=== PATIENT | female | born 1975 | race Caucasian/White ===

== ENCOUNTER 2024-03-06 10:03 | Outpatient (CLI) | payer OTHER, SELFPAY ==
[2024-03-07 20:28] LABS: Lupus dRVVT Screen 43 sec (< OR = 45); PTT-LA Screen 28 sec (< OR = 40)
[2024-03-08 13:32] LABS: Homocysteine 12.2 umol/L (<10.4)
[2024-03-09 05:13] LABS: Antithrombin III Activity 134 % normal (80-135)
== END 2024-03-06 10:04 | disposition home or self-care (01) ==
LOC: ANHLAB 10:11
PROVIDERS: PCP Family Medicine; Visit Provider Internal Medicine Hematology & Oncology
DX: D68.69 Other thrombophilia (principal)
CPT/HCPCS: 36415; 81240; 81241; 83090; 85300; 85303; 85306; 85613; 85730; 86146

== ENCOUNTER 2024-04-17 19:35 | Emergency (ER) | payer OTHER, SELFPAY ==
[2024-04-17 19:47] VITALS: BP 113/78; PULSE 78; RESP 19; TEMP 36.9; O2SAT 100
[2024-04-17 19:59] VITALS: RESP 18; O2SAT 100
--- NOTE | 2024-04-17 20:15 | PC.NURSE ---
Pinhole at end of G tube, Dr Mercedes at bedside to assess the tubing. g tube leak fixed. g tube has no hole or leaking and has been flushed with water multiple times to assess.
--- NOTE | 2024-04-17 20:47 | ED_ITS ---
HPI - General Adult General Chief complaint: Unspecified Stated complaint: GTube problem Time Seen by Provider: 04/17/24 20:03 History of Present Illness HPI narrative: patient 38-year-old female presents emergency department with chief complaint of pinhole in the G-tube. The patient reports that she has had a G-tube that was placed in another facility reports that it has a bolster has not a balloon based 2 the patient states there is a pinhole at the very distal portion of tube that when attached to her feedings sprays material out. Review of Systems Review of Systems: A 10 system review of systems was completed on the patient and is negative except for what is stated in the HPI. Nursing and ancillary documentation was reviewed. Exam Narrative: GENERAL: Well-appearing, well-nourished, and in no acute distress. HEAD: Normocephalic, atraumatic. EYES: PERRLA and EOMI. ENT: Nares clear, no rhinorrhea or epistaxis. Mucous membranes moist. NECK: Supple. CHEST: Clear to auscultation. No respiratory distress. HEART: Regular rate and rhythm. No murmur heard. Normal peripheral pulses. ABDOMEN: Soft, nontender, nondistended, normal active bowel sounds. G-tube in place of the abdominal wall there is a small pinhole present in the distal portion of the tube EXTREMITIES: Normal range of motion. No edema. SKIN: Warm, dry, no rash. NEURO: No focal deficits. Alert and oriented x3. PSYCH: Normal mood and affect. Course Vital Signs Vital signs: Vital Signs Temperature 36.9 C 04/17/24 19:47 Pulse Rate 78 04/17/24 19:47 Respiratory Rate 19 04/17/24 19:47 Blood Pressure 113/78 04/17/24 19:47 Pulse Oximetry 100 04/17/24 19:47 Oxygen Delivery Room Air 04/17/24 19:47 Temperature 36.9 C 04/17/24 19:47 Pulse Rate 78 04/17/24 19:47 Respiratory Rate 18 04/17/24 19:59 Blood Pressure 113/78 04/17/24 19:47 Pulse Oximetry 100 04/17/24 19:59 Oxygen Delivery Room Air 04/17/24 19:47 Medical Decision Making [facility] Narrative Medical decision making narrative: the feeding tube was trimmed and the attachment was replaced. There is currently no leaking present Vital Signs Vital Signs: Vital Signs Temperature 36.9 C 04/17/24 19:47 Pulse Rate 78 04/17/24 19:47 Respiratory Rate 19 04/17/24 19:47 Blood Pressure 113/78 04/17/24 19:47 Pulse Oximetry 100 04/17/24 19:47 Oxygen Delivery Room Air 04/17/24 19:47 Temperature 36.9 C 04/17/24 19:47 Pulse Rate 78 04/17/24 19:47 Respiratory Rate 18 04/17/24 19:59 Blood Pressure 113/78 04/17/24 19:47 Pulse Oximetry 100 04/17/24 19:59 Oxygen Delivery Room Air 04/17/24 19:47 Discharge Plan Discharge Clinical Impression: Malfunction of gastrostomy tube Patient Disposition: NH Senior Care/Asst Living Condition: Stable Instructions: Antibiotic Form, How to Use and Care for Your PEG Tube (DC) Additional Instructions: the leaking portion of the tube was trimmed and is no longer leaking. Please follow-up with your surgeon/GI doctor for routine follow-up and scheduled changes Follow-up/Referrals: Kadeem Wolfe MD [Primary Care Provider] - Time of Disposition: 20:56
--- NOTE | 2024-04-17 22:59 | PC.NURSE ---
Assumed care of pt from JUDITH Henry at this time.
[2024-04-18 06:58] VITALS: BP 110/70; PULSE 72; RESP 16; O2SAT 98
== END 2024-04-18 12:33 ==
PROVIDERS: Emergency Provider Emergency Medicine; PCP Family Medicine
DX: K94.23 Gastrostomy malfunction (principal); Y83.3 Surgical operation with formation of external stoma as the cause of abnormal reaction of the patient, or of later complication, without mention of misadventure at the time of the procedure
CPT/HCPCS: 99282

== ENCOUNTER 2024-07-07 12:18 | Outpatient (CLI) | payer OTHER, SELFPAY ==
--- OUTSIDE RECORDS SUMMARY | 2024-07-07 12:20 | XMS_ITS | Encounter Summary ---
Author Organization [facility] Address [address] [place] [address] Care Team Providers Care Equipment Hire Manager Name Role Phone Kadeem Wolfe MD Primary Care Provider [phone] Encounter Details Date Type Department Care Team (Late st Contact Info) Description 07/05/2024 External Device Data [facility] ABSTRACTION Provider, Abstract NO ADDRESS ON FILE Social History Tobacco Use Types Packs/Day Years Used Date Smoking Tobacco: Former Cigarettes 0.8 25 Q uit: 02/16/2023 Alcohol Use Standard Drinks/Week Comments Not Currently 0 (1 standard drink = 0.6 oz pur e alcohol) Comments Unknown Sex and Gender Information Value Date Recorded Sex Assigned at Not on file Legal Sex Female 8:46 AM CDT Gender Identity Not on file Sexual Orientation Not on file documented as of this encounter Plan of Treatment Upcoming Encounters Date Type Department Care Team (Late st Contact Info) Description 07/10/2024 4:30 PM SUPERVISOR FUSING ROOM Telephone Check Up [facility] Oncology and Hematology - [place] [address] [facility] [address] [place] [address] Monty Han MD [address] [facility] [address] [place] [address] documented as of this encounter Visit Diagnoses Not on filedocumented in this encounter Care Teams Equipment Hire Manager Relationship Specialty Start Date End Date Kadeem Wolfe MD [address] [place] [address] PCP - General Family Practice 02/17/24 documented as of this encounter
--- OUTSIDE RECORDS SUMMARY | 2024-07-07 12:20 | XMS_ITS | Clinical Summary ---
Author Organization [facility] Address [address] [place] [address] Care Team Providers Care Turner Machine Name Role Phone Kadeem Wolfe MD Primary Care Provider [phone] Allergies No known active allergies Medications acetaminophen (TYLENOL ARTHRITIS) 650 mg Extended Release tablet Take 650 mg by mouth every 6 hours as needed for Pain. Active ascorbic acid, vitamin C, (VITAMIN C) 500 mg tablet Take 500 mg by mouth daily. Active aspirin (ECOTRIN EC) 81 mg Tablet, Delayed Release (E.C.) Take 81 mg by mouth daily. Active bisacodyL (DULCOLAX) 5 mg Delayed Release tablet Take 5 mg by mouth 1 time daily as needed for Constipation . Active BISACODYL RECTAL Insert 10 mg by rectum. Active magnesium citrate (CITROMA ORAL) Take 296 mg by mouth. Active escitalopram oxalate (LEXAPRO) 5 mg tablet Take 5 mg by mouth daily. Active ferrous sulfate 325 mg (65 mg iron) tablet Take 325 mg by mouth daily. Active sodium phosphates (FLEET ADULT) 19-7 gram/118 mL Enema Insert 133 mL by rectum one time only. Active gabapentin (NEURONTIN) 600 mg tablet Take 600 mg by mouth 3 times daily. Active magnesium hydroxide (MILK OF MAGNESIA) 400 mg/5 mL suspension Take 30 mL by mouth 1 time daily as needed for Constipation . Active pramipexole (MIRAPEX) 0.125 mg Tablet Take 0.125 mg by mouth. Active silver sulfADIAZINE (SILVADENE) 1 % Cream Apply to affected area daily. Active thiamine (VITAMIN B-1) 100 mg tablet Take 1 Tablet by mouth daily. Active traMADoL (ULTRAM) 50 mg tablet Take 50 mg by mouth every 6 hours as needed for Pain. Active folic acid (FOLVITE) 1 mg tabletIndications:S econdary hypercoagulable state Take 1 Tablet (1 mg) by mouth daily. 30 Tablet 3 4 Active cyanocobalamin 1,000 mcg TabletIndications:S econdary hypercoagulable state Take 1 Tablet (1,000 mcg) by mouth daily. 30 Tablet 3 4 Active Active Problems No known active problems Encounters Date Type Department Care Team Description 07/06/2024 Telephone [facility] Oncology and Hematology - [place] [address] [place] [address] Monty Han MD Labs for appointment 07/05/2024 External Device Data [facility] ABSTRACTION Provider, Abstract 06/27/2024 External Device Data [facility] ABSTRACTION Provider, Abstract 06/07/2024 External Device Data [facility] ABSTRACTION Provider, Abstract 06/07/2024 External Device Data [facility] ABSTRACTION Provider, Abstract from Last 3 Months Family History Medical History Relation Name Comments No Known Problems Brother Heart Disease Father Pancreatic Cancer Mother Relation Name Status Comments Brother Alive Father Mother Social History Tobacco Use Types Packs/Day Years Used Date Smoking Tobacco: Former Cigarettes 0.8 25 Q uit: 02/16/2023 Tobacco Cessation:Counseling Given: Not Answered Alcohol Use Standard Drinks/Week Comments Not Currently 0 (1 standard drink = 0.6 oz pur e alcohol) Comments Unknown Sex and Gender Information Value Date Recorded Sex Assigned at Not on file Legal Sex Female 8:46 AM CDT Gender Identity Not on file Sexual Orientation Not on file Last Filed Vital Signs Vital Sign Reading Time Taken Comments Blood Pressure 108/77 02/17/2024 10:43 AM CDT Pulse 81 02/17/2024 10:43 AM CDT Temperature 36.8 C (98.2 F) 02/17/2024 10:43 AM CDT Respiratory Rate 16 02/17/2024 10:43 AM CDT Oxygen Saturation 95% 02/17/2024 10:43 AM CDT Inhaled Oxygen Concentration - - Weight 52.2 kg (115 lb) 02/17/2024 10:43 AM CDT Height 160 cm (5' 3 ) 02/17/2024 10:43 AM CDT Body Mass Index 20.37 02/17/2024 10:43 AM CDT Plan of Treatment Upcoming Encounters Date Type Department Care Team (Late st Contact Info) Description 07/10/2024 4:30 PM INDUSTRIAL PHOTOGRAPHER Telephone Check Up [facility] Oncology and Hematology - [place] [address] [facility] [address] [place] [address] Monty Han MD [address] [facility] [address] [place] [address] Health Maintenance Due Date Last Done Comments DTAP/TDAP/TD VACCINES (5 - Tdap) 1988 04/04/1979, 03/29/1978, 03/04/1978, Additional history exists HEPATITIS B VACCINES (1 of 3 - 19+ 3-dose series) 1996 05/29/2002, 12/14/2001, 11/11/2001 COLORECTAL SCREENING 2022 Colorectal Cancer Screening 2022 FIT-DNA Q 3 years 2022 FIT/FOBT Q 1 year 2022 Flex Sig/CT Colonography Q 5 years 2022 INFLUENZA VACCINE (#1) 2023 BREAST CANCER SCREENING 03/22/2024 03/22/2023 Preventative Visit-Managed Medicaid 03/23/2024 03/22/2023, 12/15/2021, 03/29/2018 CERVICAL CANCER SCREENING 12/15/2024 12/15/2021 HPV VACCINES Aged Out No longer eligi ble based on patient's age to complete this topic Insurance [employer] [place] Care Teams Turner Machine Relationship Specialty Start Date End Date Kadeem Wolfe MD [address] [place] [address] PCP - General Family Practice 02/17/24
--- OUTSIDE RECORDS SUMMARY | 2024-07-07 12:20 | XMS_ITS | Encounter Summary ---
Author Organization [facility] [employer] Address [address] [place] [address] Care Team Providers Care Director Of Government Sales Name Role Phone Kadeem Wolfe MD Primary Care Provider [phone] Reason for Visit * Reason Onset Date Comments Labs for appointment 07/06/2024 Encounter Details Date Type Department Care Team (Late st Contact Info) Description 07/06/2024 Telephone [facility] Oncology and Hematology - [place] [address] [facility] [address] [place] [address] Monty Han MD [address] [facility] [address] [place] [address] Labs for appointment Social History Tobacco Use Types Packs/Day Years [...] on file documented as of this encounter Miscellaneous Notes * Telephone Encounter - Davy Manzanares Cyndee, CECY - 07/06/2024 10:17 AM COMMUNITY SPORTS COORDINATOR Called patients brother to see if patient has gotten her labs done. Patients brother does not know and told me to call the group home that the patient is staying in to see if they did them or not. I called the group home and got transferred to the nurses station to see about patients labs but got no answer. The front tender said that they would get our number along with my personal extension togive to the nurses station and to give us a call back to let us know. UNITY SPORTS COORDINATOR documented in this encounter Plan of Treatment Upcoming Encounters Date Type Department Care Team (Late st Contact Info) Description 07/10/2024 4:30 PM COMMUNITY SPORTS COORDINATOR Telephone Check Up [facility] Oncology and Hematology - [place] [address] [facility] [address] [place] [address] Monty Han MD [address] [facility] [address] [place] [address] documented as of this encounter Visit Diagnoses Not on filedocumented in this encounter Care Teams Director Of Government Sales Relationship Specialty Start Date End Date Kadeem Wolfe MD [address] [place] [address] PCP - General Family Practice 02/17/24 documented as of this encounter
[2024-07-07 12:33] LABS: Basophils Percent Auto 0.5 % (0.2-1.2); Eosinophils Absolute Auto 0.4 K/mm3 (0-0.3); Eosinophils Percent Auto 4.9 % (0-4.4); Hematocrit 41.2 % (37.0-47.0); Hemoglobin 13.6 g/dL (12.0-15.0); Immature Granulocyte Absolute 0.01 K/mm3 (0.00-0.031); Immature Granulocyte Percent A 0.1 % (0-0.5); Lymphocytes Percent Auto 28.5 % (18.3-44.2); Mean Corpuscular Hemoglobin 31.3 pg (26-34); Mean Corpuscular Volume 94.7 fl (80-100); Mean Platelet Volume 10.2 fl (7.4-10.4); Monocytes Absolute Auto 0.4 K/mm3 (0.1-0.6); Monocytes Percent Auto 5.4 % (2.6-8.5); Neutrophils Absolute Auto 4.5 K/mm3 (1.3-6.7); Neutrophils Percent Auto 60.6 % (45.5-73.1); Platelet Count Result 384 k/mm3 (150-375); Red Blood Count 4.35 M/mm3 (4.2-5.4); Red Cell Distribution Width 12.1 % (11.5-14.5); White Blood Count 7.4 K/mm3 (4.5-10.0)
[2024-07-07 16:36] LABS: Anion Gap 9 mmol/L (4-12); Blood Urea Nitrogen 15 mg/dL (7-17); Calcium 9.8 mg/dL (8.4-10.2); Carbon Dioxide 29 mmol/L (22-30); Chloride 103 mmol/L (98-107); Estimated Glomerular Filt Rate > 60; Glucose 78 mg/dL (65-110); Potassium 4.1 mmol/L (3.4-5.0); Sodium 141 mmol/L (137-145)
[2024-07-07 17:39] LABS: Folic Acid > 20.0 ng/mL (2.76->20)
[2024-07-10 14:38] LABS: Homocysteine 9.5 umol/L (<10.4)
== END 2024-07-07 12:19 | disposition home or self-care (01) ==
LOC: ANHLAB 12:19
PROVIDERS: PCP Family Medicine; Visit Provider Internal Medicine Hematology & Oncology
DX: D68.69 Other thrombophilia (principal)
CPT/HCPCS: 36415; 80048; 82607; 82746; 83090; 85025

== ENCOUNTER 2025-03-05 12:51 | Emergency (ER) | payer OTHER, SELFPAY ==
[2025-03-05 12:56] VITALS: BP 92/70; PULSE 75; RESP 20; TEMP 36.6; O2SAT 100
[2025-03-05 13:06] VITALS: RESP 20; O2SAT 100
--- NOTE | 2025-03-05 13:12 | ED_ITS ---
HPI - Recheck/Abnormal Lab/Rx General Chief Complaint: Recheck/Abnormal Lab/Rx Stated Complaint: discharge from g-tube site Time Seen by Provider: 03/05/25 12:54 Source: patient Mode of arrival: EMS Limitations: no limitations History of Present Illness HPI narrative: This is a 49-year-old female with history of left-sided CVA, COPD, dysphagia status post G-tube placement who presents to the ED for G-tube site drainage. Per report, patient had her G-tube removed as she has been able tolerate p.o. 3 days ago. Since this morning, she has been having significant drainage from the G-tube site of stomach contents. She is sent here for further evaluation. Patient does report some mild discomfort to the area. Related Data Allergies Allergy/AdvReac Type Severity Reaction Status Date / Time No Known Allergies Allergy Verified 03/05/25 13:10 Review of Systems Review of Systems: Gen.: Denies fevers or chills Eyes: Denies eye pain or visual change ENT: Denies congestion Respiratory: Denies shortness of breath or cough CV: Denies chest pain or palpitations GI: As per HPI denies burning, urgency, frequency or hematuria Musculoskeletal: Denies back pain or muscle pain Neuro: Denies numbness, tingling, weakness or focal weakness Skin: Denies rash Except as documented, all other systems reviewed and negative Exam Narrative: APPEARANCE: No acute distress, nontoxic, resting in bed EYES: EOMI HEENT: Normocephalic, atraumatic, OMM RESPIRATORY: No respiratory distress Clear to auscultation bilaterally with no rhonchi wheezing or rales. CARDIOVASCULAR: Regular rate and rhythm without murmurs rubs or gallops. ABDOMINAL: Soft, nontender, nondistended, no rebound or guarding. G-tube site to the left upper quadrant with the drainage of stomach contents MUSCULOSKELETAl: Moves all extremities. No clubbing, cyanosis or edema. NEURO: Awake and alert. Following commands, speech normal, no focal deficits SKIN:: Warm, dry. No rashes lesions or abrasions PSYCHIATRIC: Normal affect/mood, Course Vital Signs Vital signs: Vital Signs Temperature 97.8 F 03/05/25 12:56 Pulse Rate 75 03/05/25 12:56 Respiratory Rate 20 03/05/25 12:56 Blood Pressure 92/70 L 03/05/25 12:56 Pulse Oximetry 100 03/05/25 12:56 Oxygen Delivery Room Air 03/05/25 12:56 Temperature 97.8 F 03/05/25 12:56 Pulse Rate 66 03/05/25 16:14 Respiratory Rate 18 03/05/25 16:14 Blood Pressure 125/69 03/05/25 16:14 Pulse Oximetry 97 03/05/25 16:14 Oxygen Delivery Room Air 03/05/25 12:56 MDM - Recheck/Abnormal Lab/Rx MDM Narrative Medical decision making narrative: 49-year-old female presenting for G-tube tract drainage. On initial evaluation, patient was in no acute distress, afebrile, hemodynamically stable. Abdomen was soft and nontender. She did have some drainage of stomach contents from her G- tube trach. This was removed 3 days ago as she had been tolerating p.o. just fine. I did reach out to Dr. Asencio, recommended against placing anything to maintain joint tracked and just recommended and a pressure dressing over the site to allow the tract to heal. He will see the patient outpatient within the next week for re-evaluation. I discussed this with the patient who is agreeable to this plan. Patient was discharged back to [facility] at this time. Differential Diagnosis Differential diagnosis: Likely other (G-tube dislodgement, failure of the G-tube track to heal) Medical Records Attestation: I reviewed the patient's medical records. Discharge Plan Discharge Clinical Impression: Drainage from gastrostomy tube site Patient Disposition: Home Condition: Stable Instructions: Antibiotic Form Additional Instructions: History and Exam was not consistent with a bowel obstruction. Keep pressure dressing applied to G type site. Follow-up with GI in the next few days for re- evaluation. Patient Language: Sierra Leonean Follow-up/Referrals: Kadeem Wolfe MD [Primary Care Provider, Family Practice] Candelario Asencio MD [Physician, Gastroenterology] Stand Alone Forms: Penitentiary Discharge
--- OUTSIDE RECORDS SUMMARY | 2025-03-05 15:44 | XMS_ITS | Clinical Summary ---
Author Organization [facility] Address [address] [place] [address] Care Team Providers Care Mechanical Service Technician Name Role Phone Kadeem Wolfe MD Primary Care Provider [phone] Allergies No known active allergies Medications acetaminophen [...] Encounters Date Type Department Care Team Description 01/30/2025 External Device Data [facility] ABSTRACTION Provider, Abstract 12/19/2024 External Device Data [facility] ABSTRACTION Provider, Abstract [...] 10:43 AM CDT Height 160 cm (5' 3) 02/17/2024 10:43 AM CDT Body Mass Index 20.37 02/17/2024 10:43 AM CDT Plan of Treatment Health Maintenance Due Date Last Done Comments DTAP/TDAP/TD VACCINES (5 - Tdap) 1988 04/04/1979, 03/29/1978, 03/04/1978, Additional history exists HEPATITIS B VACCINES (1 of 3 - 19+ 3-dose series) 1996 05/29/2002, 12/14/2001, 11/11/2001 HPV/Cotest (21-29) 1998 HPV/Cotest (30-65) 11/08/2007 COLORECTAL SCREENING 2022 Colorectal Cancer Screening 2022 FIT-DNA Q 3 years 2022 FIT/FOBT Q 1 year 2022 Flex Sig/CT Colonography Q 5 years 2022 BREAST CANCER SCREENING 03/22/2024 03/22/2023, 03/22 CERVICAL CANCER SCREENING 12/15/2024 INFLUENZA VACCINE (#1) 2024 PAP SMEAR 12/15/2024 12/15/2021 Insurance [employer] [place] Care Teams Mechanical Service Technician Relationship Specialty Start Date End Date Kadeem Wolfe MD [address] [place], [place] [id number] PCP - General Family Practice 02/17/24
[2025-03-05 16:14] VITALS: BP 125/69; PULSE 66; RESP 18; O2SAT 97
== END 2025-03-05 16:16 ==
PROVIDERS: Emergency Provider Student in an Organized Health Care Education/Training Program; PCP Family Medicine
DX: T85.598A Other mechanical complication of other gastrointestinal prosthetic devices, implants and grafts, initial encounter (principal); Z86.73 Personal history of transient ischemic attack (TIA), and cerebral infarction without residual deficits; J44.9 Chronic obstructive pulmonary disease, unspecified; Y83.3 Surgical operation with formation of external stoma as the cause of abnormal reaction of the patient, or of later complication, without mention of misadventure at the time of the procedure
CPT/HCPCS: 99282